=== PATIENT | male | born 1960 | race African-American/Black ===

== ENCOUNTER 2019-12-14 04:14 | Emergency (ER) | payer MEDICAID, OTHER ==
[~2019-12-14] VITALS: Ht 188 cm; Wt 98.0 kg
[2019-12-14] MEDS ORDERED: ONDANSETRON HCL 4MG/2ML INJ IV ONE ×2 (05:15→05:45)
[2019-12-14] MEDS ORDERED: MORPHINE SULFATE 4 MG/ML CPJ (NOT FOR IM USE) IV ONE (05:15)
[2019-12-14] MEDS ORDERED: PROPOFOL 200MG/20ML VIAL IV ONE (05:45)
[2019-12-14 08:02] VITALS: BP 130/85
== END 2019-12-14 08:07 | disposition home or self-care (01) ==
LOC: ER 04:41
DX: S43.084A Other dislocation of right shoulder joint, initial encounter (principal); S20.219A Contusion of unspecified front wall of thorax, initial encounter; W18.30XA Fall on same level, unspecified, initial encounter; Y93.89 Activity, other specified; Y92.59 Other trade areas as the place of occurrence of the external cause
CPT/HCPCS: 23650; 71045; 73030; 93005; 96374; 96375; 99152; 99285; J2270; J2405; J2704; L3670

== ENCOUNTER 2021-06-30 21:19 | Inpatient (IN) | payer OTHER ==
[~2021-06-30] VITALS: Ht 188 cm; Wt 91.6 kg
[2021-06-30] MEDS ORDERED: ASPIRIN 81MG TABLET PO ONE (22:30)
[2021-06-30] MEDS ORDERED: NITROGLYCERIN 0.4MG TABLET SL SL PRN (22:30)
[2021-06-30 23:34] LABS: BASOPHILS % 0.5 % (0.0-2.0); CHLORIDE 108 mEq/L (98-107); EOSINOPHILS % 1.9 % (0.0-5.0); HEMATOCRIT. 42.6 % (42.0-52.0); HEMOGLOBIN. 14.4 g/dL (14.0-18.0); LYMPHOCYTES % 18.4 % (20.0-50.0); MEAN CORPUSCULAR HEMOGLOBIN 31.2 pg (28.0-32.0); MEAN CORPUSCULAR VOLUME 92.2 fL (80.0-94.0); MEAN PLATELET VOLUME 9.4 fl (7.4-10.4); MONOCYTES % 8.2 % (2.0-8.0); PLATELET 171 x1000/uL (130-400); RED BLOOD CELL COUNT 4.62 mill/uL (4.7-6.1); RED CELL DISTRIBUTION WIDTH 15.8 % (11.6-14.6)
[2021-07-01] MEDS ORDERED: FUROSEMIDE 40MG TABLET PO SCH (01:00)
[2021-07-01 10:30] VITALS: BP 108/61
[2021-07-01] MEDS ORDERED: CLONIDINE 0.1MG TABLET PO PRN (10:30)
[2021-07-01] MEDS ORDERED: MAGNESIUM/ALUMINUM HYDROXIDE/SIMETHICONE 30ML UDC PO PRN (10:30)
[2021-07-01] MEDS ORDERED: ONDANSETRON HCL 4MG/2ML INJ IV PRN (10:30)
[2021-07-01] MEDS ORDERED: NALOXONE HCL 0.4MG/ML VIAL IV PRN (10:45)
[2021-07-01 12:00] VITALS: BP 120/71
[2021-07-01] MEDS: FUROSEMIDE 40MG/4ML VIAL IV SCH ×2 (13:26→18:50)
[2021-07-01] MEDS: ENOXAPARIN 40MG/0.4ML SYR SUBCUT SCH (13:27)
[2021-07-01 16:00] VITALS: BP 107/73
[2021-07-01 20:00] VITALS: BP 110/67
[2021-07-01 20:04] LABS: CLARITY URINE CLEAR (CLEAR); COLOR URINE YELLOW (YELLOW); KETONES URINE NEGATIVE (NEGATIVE); LEUKOCYTE ESTERASE URINE NEGATIVE (NEGATIVE); NITRITE URINE NEGATIVE (NEGATIVE); OCCULT BLOOD URINE NEGATIVE (NEGATIVE); PROTEIN URINE NEGATIVE (NEGATIVE); SPECIFIC GRAVITY URINE 1.008 (1.005-1.030); UROBILINOGEN URINE 0.2 E.U./dL (0.2-1.0)
[2021-07-01 20:18] LABS: *AMPHETAMINES SCREEN URINE NEGATIVE (NEGATIVE); *BARBITURATES SCREEN URINE NEGATIVE (NEGATIVE); *COCAINE SCREEN URINE PRESUMTIVE POSITIVE (NEGATIVE)
[2021-07-01 20:19] LABS: *BENZODIAZEPINES SCREEN URINE NEGATIVE (NEGATIVE); CANNABINOID URINE SCREEN PRESUMTIVE POSITIVE (NEGATIVE); METHADONE URINE SCREEN NEGATIVE (NEGATIVE); OPIATES URINE SCREEN NEGATIVE (NEGATIVE); PHENCYCLIDINE URINE SCREEN PRESUMTIVE POSITIVE (NEGATIVE)
[2021-07-01] MEDS: HYDROCODONE/ACETAMINOPHEN 5/325MG TABLET PO PRN (21:32)
[2021-07-02] VITALS: BP 97/64
[2021-07-02 04:00] VITALS: BP 101/67
[2021-07-02] MEDS: FUROSEMIDE 40MG/4ML VIAL IV SCH ×2 (06:09→18:41)
[2021-07-02] MEDS: HYDROCODONE/ACETAMINOPHEN 5/325MG TABLET PO PRN ×2 (06:15→10:35)
[2021-07-02 07:26] LABS: BASOPHILS % 0.9 % (0.0-2.0); EOSINOPHILS % 4.8 % (0.0-5.0); HEMATOCRIT. 44.8 % (42.0-52.0); HEMOGLOBIN. 15.1 g/dL (14.0-18.0); LYMPHOCYTES % 33.1 % (20.0-50.0); MEAN CORPUSCULAR HEMOGLOBIN 30.7 pg (28.0-32.0); MEAN CORPUSCULAR VOLUME 91.1 fL (80.0-94.0); MEAN PLATELET VOLUME 9.5 fl (7.4-10.4); MONOCYTES % 10.3 % (2.0-8.0); NEUTROPHILS % 50.9 % (40.0-76.0); PLATELET 170 x1000/uL (130-400); RED BLOOD CELL COUNT 4.92 mill/uL (4.7-6.1); RED CELL DISTRIBUTION WIDTH 16.2 % (11.6-14.6)
[2021-07-02 07:48] LABS: CHLORIDE 105 mEq/L (98-107)
[2021-07-02 07:59] LABS: HDL CHOLESTEROL 50 mg/dL (40-59); PHOSPHORUS 3.3 mg/dL (2.5-4.9)
[2021-07-02 08:00] VITALS: BP 112/66
[2021-07-02 08:00] LABS: LDL CHOLESTEROL 87 mg/dL (5-100)
[2021-07-02 08:02] LABS: T4 FREE 1.15 ng/dL (0.76-1.46)
[2021-07-02] MEDS: ENOXAPARIN 40MG/0.4ML SYR SUBCUT SCH (09:55)
[2021-07-02 12:00] VITALS: BP 107/73
[2021-07-02 16:00] VITALS: BP 108/71
[2021-07-02] MEDS: SPIRONOLACTONE 25MG TABLET PO SCH (18:41)
[2021-07-02 20:00] VITALS: BP 120/76
[2021-07-03] VITALS: BP 116/74
[2021-07-03 04:00] VITALS: BP 108/78
[2021-07-03] MEDS: FUROSEMIDE 40MG/4ML VIAL IV SCH (06:34)
[2021-07-03 07:25] LABS: BASOPHILS % 0.8 % (0.0-2.0); EOSINOPHILS % 4.1 % (0.0-5.0); HEMATOCRIT. 47.4 % (42.0-52.0); MEAN CORPUSCULAR HEMOGLOBIN 30.8 pg (28.0-32.0); MEAN CORPUSCULAR VOLUME 91.5 fL (80.0-94.0); MEAN PLATELET VOLUME 9.3 fl (7.4-10.4); NEUTROPHILS % 60.1 % (40.0-76.0); PLATELET 177 x1000/uL (130-400); RED BLOOD CELL COUNT 5.18 mill/uL (4.7-6.1); RED CELL DISTRIBUTION WIDTH 15.7 % (11.6-14.6)
[2021-07-03 07:33] LABS: CHLORIDE 102 mEq/L (98-107)
[2021-07-03 08:00] VITALS: BP 157/79
[2021-07-03] MEDS: ENOXAPARIN 40MG/0.4ML SYR SUBCUT SCH (09:53)
[2021-07-03] MEDS: SPIRONOLACTONE 25MG TABLET PO SCH (09:54)
[2021-07-03 12:00] VITALS: BP 112/79
[2021-07-03] MEDS ORDERED: SPIR25TA PO (12:31)
[2021-07-03] MEDS ORDERED: FURO-151 MT (12:31)
[2021-07-03 14:43] VITALS: BP 112/79
== END 2021-07-03 15:05 | disposition home or self-care (01) | DRG 816 ==
LOC: ER 21:19 → MICUSO 07-01 01:40 → 6WST 07-01 10:32
PROVIDERS: ADMIT Internal Medicine; ATTEND Internal Medicine
DX: T40.5X1A Poisoning by cocaine, accidental (unintentional), initial encounter (principal); I50.23 Acute on chronic systolic (congestive) heart failure; I24.9 Acute ischemic heart disease, unspecified; I11.0 Hypertensive heart disease with heart failure; I25.10 Atherosclerotic heart disease of native coronary artery without angina pectoris; I25.2 Old myocardial infarction; F12.10 Cannabis abuse, uncomplicated; F14.10 Cocaine abuse, uncomplicated; I49.3 Ventricular premature depolarization; Z20.822 Contact with and (suspected) exposure to COVID-19; F17.210 Nicotine dependence, cigarettes, uncomplicated; F16.10 Hallucinogen abuse, uncomplicated; Z87.11 Personal history of peptic ulcer disease; Z95.5 Presence of coronary angioplasty implant and graft; Z88.6 Allergy status to analgesic agent; Z88.8 Allergy status to other drugs, medicaments and biological substances; Z71.6 Tobacco abuse counseling; Z71.3 Dietary counseling and surveillance; R07.89 Other chest pain; Z71.51 Drug abuse counseling and surveillance of drug abuser
CPT/HCPCS: 36415; 71045; 80048; 80053; 80061; 80076; 80305; 81003; 83735; 83880; 84100; 84439; 84443; 84484; 85025; 87426; 93005; 93306; 93970; 99285; J1650; J1940